=== PATIENT | female | born 1985 | race Caucasian/White ===

== ENCOUNTER 2018-12-23 11:55 | Emergency (ER) | payer OTHER ==
[~2018-12-23] VITALS: Ht 177.8 cm; Wt 95.0 kg
[~2018-12-23 11:55] MED LIST: AMOXICILLIN 8751 TAB PO
[2018-12-23 12:08] VITALS: TEMP 98.1
[2018-12-23] MEDS ORDERED: AMOXICILLIN 8751 TAB PO (12:41)
[2018-12-23] MEDS ORDERED: NORCO 325 MG-7.1 TAB PO (12:41)
[2018-12-23 12:58] VITALS: BP 156/78; PULSE 76
== END 2018-12-23 12:59 | disposition home or self-care (01) ==
LOC: COL.ER 11:55
DX: K02.9 Dental caries, unspecified (principal)